=== PATIENT | male | born 1960 | race Caucasian/White ===

== ENCOUNTER 2018-03-01 06:22 | Inpatient (IN) | payer MEDICAID ==
[2018-03-01] MEDS ORDERED: LR 1,000 ML IV ONE (06:40)
[2018-03-01] MEDS ORDERED: LIDOCAINE 1% 2 ML INJ ID PRN (06:40)
[2018-03-01] MEDS ORDERED: ceFAZolin 2 GM/DEXTROSE 100 ML IV ONE (06:51)
[2018-03-01] MEDS ORDERED: ACETAMINOPHEN 500 MG TAB PO ONE (06:51)
[2018-03-01] MEDS ORDERED: LIDOCAINE 1% 2 ML INJ ONE (07:06)
--- NOTE | 2018-03-01 07:46 | PDHPUP ---
History & Physical Update H&P update statement: This history and physical update is based on an assessment of the patient which was completed after admission or registration (within 24 hours), but prior to the surgery/procedure. H&P update: H&P reviewed & patient examined, no change in patient's condition since H&P completed
[2018-03-01] MEDS ORDERED: MIDAZOLAM 2 MG/2 ML VIAL IVP ONE (07:54)
--- NOTE | 2018-03-01 07:54 | PDANEPAE ---
ANE History of Present Illness 57 yo for LUDMILA anuersym clipping ANE Past Medical History - Cardiovascular History Hx Hypertension: Yes Hx Arrhythmias: No Hx Chest Pain: No Hx Coronary Artery / Peripheral Vascular Disease: No Hx CHF / Valvular Disease: No Hx Palpitations: No Cardiovascular History Comment: undiagnosed htn - Pulmonary History Hx COPD: No Hx Asthma/Reactive Airway Disease: No Hx Recent Upper Respiratory Infection: No Hx Oxygen in Use at Home: No Hx Sleep Apnea: Yes Sleep Apnea Screening Result - Last Documented: Positive Pulmonary History Comment: POS REMI - CPAP - Neurologic History Hx Cerebrovascular Accident: No Hx Seizures: No Hx Dementia: No Neurologic History Comment: balance problems, TREMORS - Endocrine History Hx Diabetes: No - Renal History Hx Renal Disorders: Yes Renal History Comment: kidney stones - Liver History Hx Hepatic Disorders: No - Neurological & Psychiatric Hx Hx Neurological and Psychiatric Disorders: No - Cancer History Hx Cancer: No - Congenital Disorder History Hx Congenital Disorders: No - GI History Hx Gastrointestinal Disorders: Yes Gastrointestinal History Comment: ACID REFLUX OCCAS - Other Health History Other Health History: tinnitis - Chronic Pain History Chronic Pain: No - Surgical History Prior Surgeries: KNEE SCOPE. kidney stone removal X2-3. rotator cuff surgery 2015. dipti STANLEY Review of Systems Review of Systems: - Exercise capacity METS (RN): 4 METS ANE Patient History - Allergies Allergies/Adverse Reactions: tramadol [From [facility]] Allergy (Verified 02/08/18 10:36) ITCHING & AGITATION - Home Medications Home Medications: Propranolol HCl [Inderal Xl] 80 mg PO DAILY@13 12/21/17 [Last Taken 02/28/18] - NPO status NPO Status: no food or drink >8 hours NPO Since - Liquids (Date): 02/28/18 NPO Since - Liquids (Time): 22:00 NPO Since - Solids (Date): 02/28/18 NPO Since - Solids (Time): 21:00 - Anes Hx Anes Hx: post operative nausea and vomiting - Smoking Hx Smoking Status: Never smoked - Family Anes Hx Family Hx Anesthesia Complications: none ANE Labs/Vital Signs - Vital Signs Blood Pressure: 118/71 Heart Rate: 65 Respiratory Rate: 15 O2 Sat (%): 94 Height: 5 ft 9 in Weight: 133.81 kg ANE Physical Exam - Airway Neck exam: FROM Mallampati Score: Class 2 Mouth exam: normal dental/mouth exam - Pulmonary Pulmonary: no respiratory distress - Cardiovascular Cardiovascular: regular rate and rhythym - ASA Status ASA Status: III ANE Anesthesia Plan Anesthesia Plan: general endotracheal anesthesia Lines/Monitors: arterial line, central line Specialized Airway: video laryngoscope
[2018-03-01] MEDS ORDERED: THROMBIN (BOVINE) 20,000 UNIT VIAL TP ONE (07:59)
[2018-03-01] MEDS ORDERED: BACITRACIN ZINC 14.2 GM OINTTUBE TP ONE ×2 (07:59→12:05)
[2018-03-01] MEDS ORDERED: CHLORHEXIDINE GLUC HIBICLENS 118 ML BTL TP ONE (08:00)
[2018-03-01] MEDS ORDERED: MANNITOL 20% 100 GM/500 ML BAG IV ONE ×3 (08:00→08:54)
[2018-03-01] MEDS ORDERED: BUPIVACAINE 0.25% 30 ML SDV ONE (08:00)
[2018-03-01] MEDS ORDERED: niCARdipine/NACL/200 ML BAG IV ONE (08:00)
[2018-03-01] MEDS ORDERED: EPINEPHrine 1 MG/ML INJ ONE (08:01)
[2018-03-01] MEDS ORDERED: INDOCYANINE GREEN 25 MG VIAL ONE (08:01)
[2018-03-01] MEDS ORDERED: GENTAMICIN SULFATE 80 MG/2 ML VIAL ONE (08:01)
[2018-03-01] MEDS ORDERED: AVITENE POWDER 1 GM JAR TP ONE (08:03)
[2018-03-01] MEDS ORDERED: fentaNYL 250 MCG/5 ML INJ ONE (08:04)
[2018-03-01] MEDS ORDERED: REMIFENTANIL HCL 1 MG VIAL ONE ×2 (08:04→09:46)
[2018-03-01] MEDS ORDERED: PROPOFOL/EMULSION 500 MG/50 ML BOTTLE IV ONE ×2 (08:04→09:47)
[2018-03-01] MEDS ORDERED: SUGAMMADEX SODIUM 200 MG/2 ML VIAL IVP ONE (11:42)
[2018-03-01] MEDS ORDERED: LABETALOL HCL 5 MG/ML 20 ML MDV ONE (11:42)
[2018-03-01] MEDS ORDERED: ROCURONIUM 100 MG/10 ML VIAL ONE (11:42)
[2018-03-01] MEDS ORDERED: ONDANSETRON 4 MG/2 ML VIAL ONE (11:42)
[2018-03-01] MEDS ORDERED: DEXAMETHASONE 4 MG/ML VIAL ONE (11:42)
[2018-03-01] MEDS ORDERED: NALOXONE HCL 0.4 MG/ML INJ IVP PRN ×2 (11:55→15:05)
[2018-03-01] MEDS ORDERED: ONDANSETRON 4 MG/2 ML VIAL IVP PRN (11:55)
[2018-03-01] MEDS ORDERED: PROMETHAZINE HCL 25 MG/ML INJ IVP PRN ×2 (11:55→13:13)
[2018-03-01] MEDS ORDERED: PROPOFOL 200 MG/20 ML VIAL ONE (12:31)
[2018-03-01] MEDS ORDERED: fentaNYL 100 MCG/2 ML INJ ONE (12:40)
--- NOTE | 2018-03-01 12:42 | GOP ---
DATE OF OPERATION: 03/01/2018 SURGEON: Jimbo Panchal MD NEUROSURGEON: Jimbo Panchal MD. PINION AND WHEEL TRUER: NESTOR Tolentino. ANESTHESIA: General endotracheal. PREOPERATIVE DIAGNOSIS: Unruptured anterior communicating artery aneurysm. POSTOPERATIVE DIAGNOSIS: Unruptured anterior communicating artery aneurysm. PROCEDURE PERFORMED: 1. Right pterional craniotomy. 2. Microsurgical clipping of unruptured anterior communicating artery aneurysm (simple). 3. Use of the operative microscope. 4. Indocyanine Green angiography using the microscope. FINDINGS: Successful clip ligation of A-comm aneurysm. SPECIMENS: There were no specimens. ESTIMATED BLOOD LOSS: 50 cc. INDICATIONS: The patient is a 57-year-old man who had an incidentally found unruptured anterior comm unicating artery aneurysm. We confirmed this with an angiogram and the aneurysm was about 5 mm with a very wide and broad-based neck. We discussed the options of endovascular treatment versus surgical clipping and ultimately after a long discussion of the risks and benefits, he decided to proceed wit h surgical clipping. He presents electively today for this procedure. DESCRIPTION OF PROCEDURE: After informed consent was obtained from the patient, the patient was brou ght to the operating room and was placed in a supine position on the operating table. A formal time- out was performed, identifying the patient by name, medical record number, and date of . Preope rative antibiotics were given. The endotracheal tube was placed and general endotracheal anesthesia was smoothly induced. All appropriate lines were placed by Anesthesia. The patient's head was place d in the Shrestha pins and turned slightly toward the left side with the malar eminence at the highes t point. A curvilinear pterional craniotomy incision was marked and a small strip of hair was clippe d. 20 cc of 0.25% Marcaine with epinephrine was infiltrated in the skin for hemostasis. At this point, the head was prepped and draped in the normal sterile fashion. The skin incision was made using a 10 blade, and the subcutaneous tissues were dissected using monopolar electrocautery. T he superficial temporal artery was preserved. The temporalis muscle and its fascia were opened in li ne with the incision and a single myocutaneous flap was retracted anteriorly exposing the frontal zyg omatic process. At this point, 3 bur holes were created in standard pterional fashion and a cranioto me was used to turn a standard pterional craniotomy flap. Unfortunately, the dura was completely inc orporated into the bone and complete dural flap was removed with the bone flap. All bleeding was con trolled using bipolar electrocautery and Gelfoam. The sphenoid wing was then drilled down and flushe d with the skull base and again all bleeding was controlled using bipolar electrocautery. At this point, the operative microscope was brought on the field and the remainder of the procedure w as performed under a high-power magnification. First, we inspected the area. The more proximal sylv blaise fissure was split using microsurgical arachnoid dissection. The optical carotid cistern was then opened and the ipsilateral optic nerve was completely dissected free of its arachnoid adhesions towa rd the olfactory tract. The carotid artery was visualized and the contralateral optic nerve was also visualized. A small opening was made in the lamina terminalis to provide for further brain relaxati on, and the ipsilateral A-1 segment of the anterior cerebral artery was then identified. This was di ssected medially and the inferior portion of the interhemispheric fissure was also opened. This allo wed us to see the contralateral A-1 segment giving good proximal control. At this point, the aneurysm was elevated quite high in the interhemispheric fissure. Therefore, this required placement of a self-retaining retractor on the gyrus rectus. A small amount of the gyrus r ectus was resected giving exposure of the ipsilateral A-2 segment. The recurrent artery of Nevaeh a nd the frontal polar artery were carefully preserved. At this point, we were able to see the entire anterior communicating artery complex and careful microdissection contralaterally revealed the contra lateral A-2. The aneurysm was seen projecting superiorly and posteriorly toward the inner hemispheri c fissure. The posterior aspect of the aneurysm was dissected and the A-comm perforators were visual ized and very carefully preserved. At this point, we had identified the anatomy of the aneurysm well and a fenestrated [facility] an[facility] urysm clip was selected and this was placed across the neck of the aneurysm with care to preserve the contralateral and ipsilateral A-2 segments. This left a small shoulder of the aneurysm ipsilaterall y and a 2nd fenestrated clip was placed in a picket-fence fashion which took care of this other porti on of the aneurysm. The area was inspected and both A-1 and A-2 segments were widely patent. The an terior communicating artery was also patent. This was checked with a Doppler ultrasound and subseque ntly an Indocyanine Green angiogram was performed using the operative microscope, which confirmed goo d patency of all vessels with what appeared to be normal flow. At this point, the wound was copiously irrigated. A few pieces of Surgicel were placed around the an eurysm clips, and the aneurysm clips were padded away from the optic nerve using Gelfoam. The wound was copiously irrigated using sterile saline. At this point in terms of the dural repair, a large pi annie of DuraGen was placed in as an inlay graft and tucked underneath the edges of the bone. It was s utured to the edges of the bone on the inferior frontal area to elevate it and provide a good graft s urface. At this point, what remained of the dura was tacked closed over the top of this, and the bon e flap was plated back in place using Synthes titanium plates and screws. Some Gelfoam was placed in the sub temporal area and a 10-Moroccan GRISELDA drain was placed in the subgaleal space. The wound was copy holder iously irrigated using bacitracin irrigation. The temporalis muscle and its fascia were closed using interrupted 2-0 Vicryls and the galea was closed using interrupted 2-0 Vicryls and the skin was clos ed using a running 4-0 Monocryl. Sterile dressings were placed. The hair was washed. The patient w as awakened in the operating room, was extubated, and was transferred to the PACU in stable condition . There were no operative complications. I was scrubbed and present the entire procedure. All spon ge and needle counts were correct at the end of the case. FLUIDS AND URINE OUTPUT: Per the anesthesia record. DRAINS: A subgaleal GRISELDA. /[id number]/MODL
[2018-03-01] MEDS: fentaNYL 100 MCG/2 ML INJ IVP PRN ×2 (12:47→13:10)
[2018-03-01] MEDS ORDERED: HYDROmorphONE/DILAUDID 2 MG/ML INJ ONE (12:58)
[2018-03-01] MEDS ORDERED: BISACODYL 10 MG SUPP PR PRN (13:13)
[2018-03-01] MEDS ORDERED: LACTULOSE 20 GM/30 ML UDCUP PO PRN (13:13)
[2018-03-01] MEDS ORDERED: POLYETHYLENE GLYCOL 3350 17 GM PKT PO PRN (13:13)
[2018-03-01] MEDS ORDERED: HYDROCODONE/APAP 10/325 TAB PO PRN (13:13)
[2018-03-01] MEDS ORDERED: MAG HYDROX/AL HYDROX/SIMETH 30 ML UDCUP PO PRN (13:13)
[2018-03-01] MEDS ORDERED: MAGNESIUM HYDROXIDE 30 ML UDCUP PO PRN (13:13)
--- NOTE | 2018-03-01 13:37 | POSTOPPROG ---
Post Op Note Date of Operation: 03/01/18 Surgeon: Jimbo Panchal Vice President Of News: Fern Saravia PA-C Anesthesia: GET(General Endotracheal) Pre-op Diagnosis: Unruptured aneurysm Post-op Diagnosis: same Procedure: Right sided craniotomy for clipping of Acomm aneurysm Inf/Abcess present in the surg proc area at time of surgery?: No Depth: Organ Space EBL: 50-100 Drains: Robson Monreal (GRISELDA X1- subgaleal) SOAP Progress Note Assessment/Plan: Assessment: Plan: 03/01/18 13:28 S: Patient in PACU. Restless in bed but moving everything and stable. O: NAD, VSS CN II-XII gorssly intact PERRL, EOMI ORR X4 with full strength restless in bed pulling off clothes Incision c/d/i- telfa Left frontal pin site stapled and scalp hematoma present GRISELDA X1- subgaleal A: 57 yo male sp right frontal craniotomy for surgical clipping of Acomm aneurysm P: -Admit to ICU -SBP 90-140 -HOB elevated overnight -Neuro checks q1 -Head CT in am -Diagnostic angiogram tomorrow -PT.OT.SENIOR STAFF CONSULTANT -Advance diet as tolerated -Activity as tolerated -Call with any questions or concerns Objective: Vital Signs Temp Pulse Resp BP Pulse Ox 36.2 C 51 L 14 93/49 L 96 03/01/18 12:50 03/01/18 12:50 03/01/18 13:06 03/01/18 13:06 03/01/18 12:51 02/28/18 03/01/18 03/02/18 05:59 05:59 05:59 Intake Total 2700 Output Total 2190 Balance 510
[2018-03-01] MEDS ORDERED: NALOXONE HCL 0.4 MG/ML INJ ONE (15:04)
--- NOTE | 2018-03-01 15:43 | GCON ---
TIRE SORTER CONSULTATION REASON FOR ADMISSION: Status post right-sided craniotomy with clipping of ACom aneurysm. HISTORY OF PRESENT ILLNESS: The patient is a 57-year-old white male. He has a past medical history of essential tremors. Again, he is examined postoperatively. Upon presentation to the intensive car e unit out of the recovery room, he is found to be markedly bradycardic. When he is aroused, his hea rt rate comes back up. Blood pressures remain stable. He is minimally diaphoretic at this time. REVIEW OF SYSTEMS: Ten-point review of systems was attempted, but unable to perform secondary to sed ation post anesthesia. PAST MEDICAL HISTORY: Significant for essential tremors. ALLERGIES: Tramadol. SOCIAL HISTORY: No history of tobacco use. Infrequent alcohol use. 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 He is , with 2 children. He has lived in [place] all of his life. PHYSICAL EXAM: VITAL SIGNS: Blood pressure 120/55. Pulse is 42, but dropped down to low 30s. Resp iratory rate is 14. Temperature is 35.8. Oxygen saturation 96% on 2 L. GENERAL: He is a mildly ove rweight 57-year-old white male who is somnolent but weakly arousable. HEENT: Eyes: PERRLA, EOMI. T hroat shows no erythema or tonsillar hypertrophy. NECK: Supple. There is no cervical adenopathy. HEART: Regular rate and rhythm, but bradycardic. LUNGS: Diminished breath sounds but no wheeze. A BDOMEN: Soft, nontender. Bowel sounds are present in all 4 quadrants. EXTREMITIES: No clubbing, c yanosis, or edema. LABORATORY DATA: Laboratories are currently pending. IMPRESSION: 1. Status post right-sided craniotomy for clipping of an anterior communicating aneurysm. 2. Bradycardia, etiology of which is unclear, though post anesthetic would appear to be most likely. 3. History of essential tremor. RECOMMENDATIONS: 1. Agree with EKG. 2. Would consider consultation with Cardiology if heart rate does not improve in approximately an ho ur. 3. DVT and PE prophylaxis. 4. Stress ulcer prophylaxis. /[id number]/MODL
--- NOTE | 2018-03-01 16:05 | PDMN ---
Medical Necessity Medical necessity: [facility] IP only surgery cpt 75012 R craniotomy for clipping of aneurysm
[2018-03-01] MEDS: POLYETHYLENE GLYCOL 3350 17 GM PKT PO SCH ×2 (16:16→20:47)
[2018-03-01] MEDS: NS W/ 20 KCl/L 1,000 ML IV SCH (17:20)
[2018-03-01] MEDS: ceFAZolin 2 GM in D5W 100 ML IV SCH (17:28)
[2018-03-01] MEDS: ONDANSETRON 4 MG/2 ML VIAL IVP PRN (17:45)
[2018-03-01] MEDS ORDERED: LORazepam 2 MG/ML INJ IVP ONE (19:00)
[2018-03-01] MEDS: SENNOSIDES/DOCUSATE SODIUM TAB PO SCH (20:47)
[2018-03-02] MEDS: ceFAZolin 2 GM in D5W 100 ML IV SCH (01:41)
[2018-03-02] MEDS ORDERED: LORazepam 2 MG/ML INJ IVP ONE (01:45)
--- NOTE | 2018-03-02 08:46 | NEUSURGPN ---
Assessment/Plan: Assessment: Plan: 03/01/18 13:28 S: He has a mild headache and some jaw pain. O: NAD, VSS CN II-XII gorssly intact Occasional word finding difficulties but nothing consistent PERRL, EOMI ORR X4 with full strength Incision c/d/i- telfa Left frontal pin site stapled and scalp hematoma present GRISELDA X1- subgaleal A: 57 yo male sp right frontal craniotomy for surgical clipping of Acomm aneurysm P: -Admit to ICU -SBP 90-140 -GRISELDA Drain - leave in to full suction -Neuro checks q2 -Head CT later this morning, was unable to get last night due to agitation -Diagnostic angiogram this afternoon as well -Will monitor speech for now and see what angiogram shows and CT -PT.OT.MEDICAL OFFICE RECEPTIONIST ASSISTANT -Advance diet as tolerated -Activity as tolerated -Call with any questions or concerns -Seen with Dr. Panchal as well Catheter Insertion Date: 03/01/18 - Physician Discussed Patient with Dr.: Panchal Patient Seen by Dr.: Panchal Neurosurgery Physical Exam - Vitals, I&O, Labs I and O 03/01/18 03/02/18 03/03/18 05:59 05:59 05:59 Intake Total 2700 1346 Output Total 4905 Balance -2205 1346 Weight 133.81 kg Intake: IV Intake (ml) 2700 IV Infused (ml) 1346 NS W/ 20 KCl/L 1,000 ml @ 1346 100 mls/hr IV CONT AMY Rx#:[id number] Output: Urine (ml) 4450 Catheter 4450 Estimated Blood Loss (ml) 150 GRISELDA Drain Output (ml) 305 Right Head Robson Monreal 305 Other: Number of Stools Catheter 0 Vital Signs Temp Pulse Resp BP Pulse Ox 36.9 C 64 17 132/64 H 91 L 03/02/18 05:00 03/02/18 06:00 03/02/18 06:00 03/02/18 06:00 03/02/18 06:00 ICD10 Worksheet Patient Problems: Problems Problem Status Onset Cerebral aneurysm Acute - ICD10 Problem Qualifiers (1) Cerebral aneurysm
--- NOTE | 2018-03-02 09:32 | ASMTCASEMG ---
Living Arrangements What is your living Answers: With Spouse arrangement? Who do you live with? Type Of Residence What kind of residence do Answers: House you live in? Discharge Plan Comments Coordination Status Comments Notes: Patient is a 57yo male who was admitted for surgery due to a 5mm wide-necked Acomm aneurysm. Patient has opted for surgical clipping over stent assisted coil embolization. OT/PT/SPL have been ordered. D/C plan TBD. CM will follow. Date Signed: 03/02/2018 09:31 AM Electronically Signed By:Katelin Bennett LCSW
--- NOTE | 2018-03-02 09:37 | PDINTPN ---
Multilith Operator Progress Note Assessment/Plan: Assessment/plan: * Status post right-sided craniotomy with clipping of acomm aneurysm -repeat CT scan of the head this morning * Mental status-slow to improve * Bradycardia-markedly better * PT/OT * History of essential tremors * Nutrition * Stress ulcer prophylaxis Subjective: Complains of nausea. Still somewhat agitated and little confused. Objective: Vital Signs Temp Pulse Resp BP Pulse Ox 36.9 C 64 17 132/64 H 91 L 03/02/18 05:00 03/02/18 06:00 03/02/18 06:00 03/02/18 06:00 03/02/18 06:00 03/01/18 03/02/18 03/03/18 05:59 05:59 05:59 Intake Total 2700 1346 Output Total 4905 Balance -2205 1346 - Time Spent With Patient Time Spent With Patient: 35 min of time spent with patient, over 1/2 involved coordination of care or counseling Physical Exam - Physical Exam General Appearance: alert, other (Today somewhat agitated) EENT: PERRL/EOMI Neck: non-tender, full range of motion, supple, normal inspection Respiratory: chest non-tender, lungs clear, normal breath sounds Cardiac/Chest: normal peripheral pulses, regular rate, rhythm Peripheral Pulses: 2+: carotid (R), carotid (L), femoral (R), femoral (L), dorsalis-pedis (R), dorsalis-pedis (L) Abdomen: normal bowel sounds, non-tender, soft Male Genitalia: deferred Rectal: deferred Skin: normal color, warm/dry Extremities: normal range of motion, non-tender, normal inspection, normal capillary refill Neuro/Psych: alert ICD10 Worksheet Patient Problems: Problems Problem Status Onset Cerebral aneurysm Acute
[2018-03-02] MEDS: SENNOSIDES/DOCUSATE SODIUM TAB PO SCH (10:21)
[2018-03-02] MEDS: POLYETHYLENE GLYCOL 3350 17 GM PKT PO SCH ×2 (10:21→16:33)
[2018-03-02] MEDS: ONDANSETRON 4 MG/2 ML VIAL IVP PRN (12:02)
[2018-03-02] MEDS: PROPRANOLOL SR 80 MG CAP PO SCH (14:30)
--- NOTE | 2018-03-02 16:31 | CPEKG ---
Test Reason : OPEN Blood Pressure : / mmHG Vent. Rate : 040 BPM Atrial Rate : 041 BPM P-R Int : 157 ms QRS Dur : 104 ms QT Int : 546 ms P-R-T Axes : 030 -12 -19 degrees QTc Int : 446 ms Sinus bradycardia Borderline T abnormalities, diffuse leads Confirmed by Christopher Keller ([id number]) on 03/02/2018 4:31:17 PM Referred By: Confirmed By:Christopher Keller
[2018-03-02] MEDS: hydrALAZINE 20 MG/ML VIAL IVP PRN (17:58)
[2018-03-02] MEDS: NS W/ 20 KCl/L 1,000 ML IV SCH (19:35)
[2018-03-02] MEDS: ACETAMINOPHEN 325 MG TAB PO PRN (22:00)
[2018-03-03] MEDS: SENNOSIDES/DOCUSATE SODIUM TAB PO SCH ×4 (00:16→20:37)
[2018-03-03] MEDS: POLYETHYLENE GLYCOL 3350 17 GM PKT PO SCH ×4 (00:16→20:37)
[2018-03-03] MEDS: ONDANSETRON 4 MG/2 ML VIAL IVP PRN ×2 (06:13→20:29)
[2018-03-03] MEDS: hydrALAZINE 20 MG/ML VIAL IVP PRN (06:18)
[2018-03-03] MEDS: niCARdipine/NACL 200 ML IV PRN ×3 (07:38→12:21)
--- NOTE | 2018-03-03 08:40 | NEUSURGPN ---
Date of Surgery: 03/01/18 Post Op Day: 2 Assessment/Plan: A: 57 yo male sp right frontal craniotomy for surgical clipping of Acomm aneurysm P: -neuro stable -SBP 90-140 -GRISELDA Drain - removed this morning, staple placed. Patient tolerated well -Neuro checks q2 -CT head 03/02: small amount of SAH bilaterally, trace right subdural fluid, tiny focus of intraparenchymal hemorrhage in frontal lobe -PT.OT.SOLUTION ANALYST -Advance diet as tolerated -Activity as tolerated - keep HOB elevated - likely to floor this afternoon -Call with any questions or concerns Discussed with Dr. Panchal Subjective: Patient reports mild headache and some n/v. Objective: Awake. Alert. PERRL. EOMI Right periorbital edema Facial expression symmetrical Muscle strength full at 5/5 Incision with dressing c/d/i Catheter Insertion Date: 03/01/18 - Physician Discussed Patient with : [facility] Physical Exam - Vitals, I&O, Labs I and O 03/02/18 03/03/18 03/04/18 05:59 05:59 05:59 Intake Total 2700 2922 Output Total 4905 1890 2340 Balance -2205 1032 -2340 Weight 133.81 kg Intake: Oral (ml) 250 IV Intake (ml) 2700 IV Infused (ml) 2672 NS W/ 20 KCl/L 1,000 ml @ 2672 100 mls/hr IV CONT AMY Rx#:[id number] Output: Urine (ml) 4450 1675 1850 Catheter 4450 1675 1850 Estimated Blood Loss (ml) 150 Emesis (ml) 115 400 GRISELDA Drain Output (ml) 305 100 90 Right Head Robson Monreal 305 100 90 Other: Number of Voids Catheter 1 Number of Stools Catheter 0 0 Number of Emesis 1 Occurrences Vital Signs Temp Pulse Resp BP Pulse Ox 37 C 84 18 159/73 H 96 03/03/18 04:00 03/03/18 07:00 03/03/18 07:00 03/03/18 07:51 03/03/18 07:00 ICD10 Worksheet Patient Problems: Problems Problem Status Onset Cerebral aneurysm Acute
--- NOTE | 2018-03-03 09:36 | PDINTPN ---
Boiler Fitter Progress Note Assessment/Plan: Assessment/plan: * Status post right-sided craniotomy with clipping of acomm aneurysm -repeat CT scan of the head this morning * Mental status-markedly better. Patient awake and alert. * Bradycardia-markedly better * PT/OT * History of essential tremors * Nutrition * Stress ulcer prophylaxis * Disposition-likely transfer to floor later on today Subjective: Resting comfortably in bed. Passing gas. Awake and alert and orient x3. Pain reasonably well controlled. Objective: Vital Signs Temp Pulse Resp BP Pulse Ox 37.0 C 87 15 157/68 H 95 03/03/18 08:00 03/03/18 09:00 03/03/18 09:00 03/03/18 09:00 03/03/18 09:00 03/02/18 03/03/18 03/04/18 05:59 05:59 05:59 Intake Total 2700 2922 Output Total 4905 1890 2340 Balance -2205 1032 -2340 - Time Spent With Patient Time Spent With Patient: 35 min of time spent with patient, over 1/2 involved with coordination of care or counseling. Case discussed with nursing Physical Exam - Physical Exam General Appearance: alert, no apparent distress, obese EENT: PERRL/EOMI Neck: non-tender Respiratory: chest non-tender, lungs clear, normal breath sounds Cardiac/Chest: normal peripheral pulses, regular rate, rhythm Peripheral Pulses: 2+: carotid (R), carotid (L), femoral (R), femoral (L), dorsalis-pedis (R), dorsalis-pedis (L) Abdomen: normal bowel sounds, non-tender, soft Male Genitalia: deferred Rectal: deferred Skin: normal color, warm/dry Neuro/Psych: alert, oriented x 3 ICD10 Worksheet Patient Problems: Problems Problem Status Onset Cerebral aneurysm Acute
[2018-03-03] MEDS: PROPRANOLOL SR 80 MG CAP PO SCH (12:21)
--- NOTE | 2018-03-03 12:50 | ASMTCMCOM ---
CM Note CM Note Notes: OT/PT/MERCHANDISING EXECUTION ASSOCIATE are all recommending inpatient rehab services for patient at d/c. Dr. Alvares has placed an order for inpatient rehab eval. Will await those results to continue planning. CM will follow. Date Signed: 03/03/2018 12:49 PM Electronically Signed By:Katelin Bennett LCSW
[2018-03-03] MEDS: ACETAMINOPHEN 325 MG TAB PO PRN (20:36)
[2018-03-04 07:22] VITALS: BP 122/68
--- NOTE | 2018-03-04 08:27 | NEUSURGPN ---
Date of Surgery: 03/01/18 Post Op Day: 3 Assessment/Plan: Assessment: 57 yo male sp right frontal craniotomy for surgical clipping of Acomm aneurysm Plan: -neuro stable -SBP 90-140 -Neuro checks q4 -CT head 03/02: small amount of SAH bilaterally, trace right subdural fluid, tiny focus of intraparenchymal hemorrhage in frontal lobe -PT.OT.TILTROTOR CREW CHIEF-currently recommending in patient rehab. Dr Panchal would prefer that patient discharge home with home health if possible. Ok to dc today from our standpoint -Advance diet as tolerated -Remove telfa dressing, ok to shower and wash hair daily with baby shampoo -Activity as tolerated - keep HOB elevated -ok to transfer to floor -Call with any questions or concerns Discussed with Dr. Panchal Subjective: Feeling well, no complaints Objective: AxO x3 PERRLA EOMI CN 2-12 grossly intact MAEx4 5/5 BUE, BLE Incision/dressing CDI Neuro Check Frequency: per routine Urinary Catheter in Place: No Catheter Insertion Date: 03/01/18 - Physician Discussed Patient with : [facility] Physical Exam - Vitals, I&O, Labs I and O 03/03/18 03/04/18 03/05/18 05:59 05:59 05:59 Intake Total 2922 1080 450 Output Total 1890 4140 200 Balance 1032 -3060 250 Intake: Oral (ml) 250 400 450 IV Infused (ml) 2672 680 NS W/ 20 KCl/L 1,000 ml @ 2672 100 mls/hr IV CONT AMY Rx#:[id number] niCARdipine/NACL 200 ml @ 680 Titrate IV PRN PRN Rx#: [id number] Output: Urine (ml) 1675 3450 200 Catheter 1675 3450 Toilet 200 Emesis (ml) 115 600 GRISELDA Drain Output (ml) 100 90 Right Head Robson Monreal 100 90 Other: Intake Quantity Yes Sufficient Number of Voids Catheter 1 Toilet 1 1 Number of Stools Catheter 0 Toilet 0 Number of Emesis 1 5 Occurrences Vital Signs Temp Pulse Resp BP Pulse Ox 36.7 C 58 L 19 122/68 H 96 03/04/18 07:21 03/04/18 07:21 03/04/18 07:21 03/04/18 07:21 03/04/18 07:21 ICD10 Worksheet Patient Problems: Problems Problem Status Onset Cerebral aneurysm Acute
[2018-03-04] MEDS: POLYETHYLENE GLYCOL 3350 17 GM PKT PO SCH (08:41)
--- NOTE | 2018-03-04 10:46 | ASMTLACE ---
LACE Length of stay for Answers: 3 days current admission Acuity / Level of Answers: Yes Care: Did the patient have an inpatient admission? Comorbidities - select Answers: Other Notes: HTN; Hx of kidney all that apply stones, aortic aneurysm # of Emergency department Answers: 0 visits in the last 6 months Score: 7 Date Signed: 03/04/2018 10:45 AM Electronically Signed By:Ofe Foss RN
--- NOTE | 2018-03-04 10:52 | PDIAF ---
- Diagnosis Diagnosis: S/P right crani for acomm aneurysm clipping Code Status: Full Code - Medication Management Discharge Medications: Medications to Continue on Transfer Propranolol HCl [Inderal Xl] 80 mg PO DAILY@13 12/21/17 [Last Taken 02/28/18] Acetaminophen [Tylenol 325mg (*)] 650 mg PO Q4HRS PRN tab 03/04/18 [Last Taken Unknown] HYDROcodone/APAP 10/325 [Gray 10/325 (*)] 1 - 2 tab PO Q6HRS PRN #60 tab [Last Taken Unknown] Sennosides/Docusate Sodium [Senokot-S] 1 - 2 tab PO BID tab 03/04/18 [Last Taken Unknown] Discharge Medications: Refer to the Discharge Home Medication list for PRN reason. PICC Care - Routine: N/A - Orders Services needed: Home Care, Registered Nurse, Physical Therapy, Occupational Therapy Home Care Face to Face: I certify that this patient was under my care and that I had the required [id number] encounter meeting the encounter requirements on the discharge day. My findings support the fact that the patient is homebound as defined in Home Care Face to Face Continued: CMS Chapter 7 Medicare Benefits Manual 30.1.1 , The condition of the patient is such that there exists a normal inability to leave home and consequently, leaving home would require a considerable and taxing effort. Diet Recommendation: no restrictions on diet Diet Texture: Regular Texture Diet Wound Care Instructions: Ok to shower and wash hair daily with baby shampoo Additional Instructions: Ok to shower daily and wash hair with baby shampoo Avoid lifting greater than 10 pounds Follow up with Dr Panchal in 2 weeks Call office with any questions/concerns [phone] - Follow Up Care Current Providers and Referrals: JACIEL GILBERT [Other] Jimbo Panchal MD [Medical Doctor] - follow up in 2 weeks
--- NOTE | 2018-03-04 11:13 | ASMTDCNOTE ---
Case Management Discharge Discharge Order Complete? Answers: Yes Patient to Obtain Answers: via Family Medications Transportation Arranged Answers: Family/Friends Faxed Final Orders Answers: Yes [facility] Transfer Answers: Yes [facility] Report Printed & Faxed to Receiving Agency Discharge Comments Notes: 03/04/2018 Case Management Note Met w/pt to discuss PT and OT recommendations for home health. [facility] F[facility]ed final orders. Case Management d[facility] p[facility] PT Date Signed: 03/04/2018 11:12 AM Electronically Signed By:Ofe Foss RN
--- NOTE | 2018-03-04 11:13 | ASDISCHSUM ---
Discharge Information Plan Status:Home with Home Health Medically Cleared to Leave:03/04/2018 Discharge Date:03/04/2018 CM D/C Disposition:Home Health Service ADT D/C Disposition:[id number] Projected Discharge Date:03/04/2018 11:00 AM Transportation at D/C:Family Discharge Delay Reason: Follow-Up Date:03/04/2018 11:00 AM Discharge Slot: Final Diagnosis: Placement Information Referral Type:*Home Health Care Services Referral ID:[id number] Provider Name:[facility] ([facility]) Address 1:[address] Address 2: City:[place] Selection Factors: State:[place] Patient Contact Information Contact Name:JONO Relationship: Address:[address] Work Phone: [facility]:[place] Alternate Phone: State/Zip Code:[place] [address] Email: Financial Information Financial Class:Medicaid Primary Plan Desc:MEDICAID [facility] [place] Primary Plan Number:[id number] Secondary Plan Desc: Secondary Plan Number: Assessment Information LACE LACE Length of stay for Answers: 3 days current admission Acuity / Level of Answers: Yes Care: Did the patient have an inpatient admission? Comorbidities - select Answers: Other Notes: HTN; Hx of kidney all that apply stones, aortic aneurysm # of Emergency department Answers: 0 visits in the last 6 months Score: 7 Date Signed: 03/04/2018 10:45 AM Electronically Signed By:Ofe Foss RN [facility] Initial CM Assessment Living Arrangements What is your living Answers: With Spouse arrangement? Who do you live with? Type Of Residence What kind of residence do Answers: House you live in? Discharge Plan Comments Coordination Status Comments Notes: Patient is a 57yo male who was admitted for surgery due to a 5mm wide-necked Acomm aneurysm. Patient has opted for surgical clipping over stent assisted coil embolization. OT/PT/SPL have been ordered. D/C plan TBD. CM will follow. Date Signed: 03/02/2018 09:31 AM Electronically Signed By:Katelin Bennett LCSW [facility] CM Progress Note CM Note CM Note Notes: OT/PT/PNEUMATIC SYSTEM CONVEYOR OPERATOR are all recommending inpatient rehab services for patient at d/c. Dr. Alvares has placed an order for inpatient rehab eval. Will await those results to continue planning. CM will follow. Date Signed: 03/03/2018 12:49 PM Electronically Signed By:Katelin Bennett LCSW Case Management Discharge Plan Note Case Management Discharge Discharge Order Complete? Answers: Yes Patient to Obtain Answers: via Family Medications Transportation Arranged Answers: Family/Friends Faxed Final Orders Answers: Yes [facility] Transfer Answers: Yes [facility] Report Printed & Faxed to Receiving Agency Discharge Comments Notes: 03/04/2018 Case Management Note Met w/pt to discuss PT and OT recommendations for home health. Pt [facility] agreement[facility] Faxed final orders. Case Management d/c poc: [facility] RN PT Date Signed: 03/04/2018 11:12 AM Electronically Signed By:Ofe Foss RN Intervention Information
--- NOTE | 2018-03-07 09:04 | POSTANESTH ---
Post Anesthetic Evaluation Cardiovascular Status: Normal, Stable Respiratory Status: Normal, Stable Level of Consciousness/Mental Status: Can Participate in Eval Pain Control: Adequate, Prn Tx Ordered Nausea/Vomiting Control: Adequate, Prn Tx Ordered Complications Possibly Related to Anesthesia: None Noted
== END 2018-03-04 12:30 | disposition home health service (06) | DRG 21 ==
LOC: F3N 06:22 → F2N 13:17
PROVIDERS: ADMIT Neurological Surgery; ATTEND Neurological Surgery
PROC: 03LG0CZ Occlusion of Intracranial Artery with Extraluminal Device, Open Approach (ICD-10-PCS; principal; 2018-03-01 08:15)
DX: I67.1 Cerebral aneurysm, nonruptured (principal); G25.0 Essential tremor; I10 Essential (primary) hypertension; G47.33 Obstructive sleep apnea (adult) (pediatric); R00.1 Bradycardia, unspecified
CPT/HCPCS: 92507-GN; 92523-GN; 97116-GP; 97161-GP; 97166-GO; 97530-GP; 97535-GO; C1713; J0171; J0360; J0690; J1100; J1170; J1580; J2060; J2250; J2270; J2310; J2405; J2704; J3010

== ENCOUNTER 2018-06-16 07:19 | Day surgery (SDC) | payer MEDICAID ==
[2018-06-16] MEDS ORDERED: LR 1,000 ML IV ONE (07:30)
--- NOTE | 2018-06-16 08:31 | PDGENHP ---
History & Physical Chief Complaint: epi pain, nausea History of Present Illness: few months intemittnat pain LUQ and nausea. wt loss now stable Pertinent Past, Social, Family History: phx brain anursym,. fhx cacner - panc in Maternal uncle no cc or polyps. no tobacco. occ alcohol Relevant Physical Exam: A+ox3. CTA. S1S2, RRR. +bs, soft Cardiorespiratory Assessment: class 3
--- NOTE | 2018-06-16 08:52 | PDANEPAE ---
ANE History of Present Illness abdominal pain here for EGD ANE Past Medical History - Cardiovascular History Hx Hypertension: Yes Hx Arrhythmias: No Hx Chest Pain: No Hx Coronary Artery / Peripheral Vascular Disease: No Hx CHF / Valvular Disease: No Hx Palpitations: No Cardiovascular History Comment: undiagnosed htn - Pulmonary History Hx COPD: No Hx Asthma/Reactive Airway Disease: No Hx Recent Upper Respiratory Infection: No Hx Oxygen in Use at Home: No Hx Sleep Apnea: Yes Sleep Apnea Screening Result - Last Documented: Positive Pulmonary History Comment: REMI does not use anything - Neurologic History Hx Cerebrovascular Accident: No Hx Seizures: No Hx Dementia: No Neurologic History Comment: balance problems, TREMORS - Endocrine History Hx Diabetes: No Obesity: yes, moderate - Renal History Hx Renal Disorders: No Renal History Comment: kidney stones - Liver History Hx Hepatic Disorders: No - Neurological & Psychiatric Hx Hx Neurological and Psychiatric Disorders: Yes Neurological / Psychiatric History Comment: essential tremor - Cancer History Hx Cancer: No - Congenital Disorder History Hx Congenital Disorders: No - GI History Hx Gastrointestinal Disorders: Yes Gastrointestinal History Comment: ACID REFLUX OCCAS. weight loss,nausea - Other Health History Other Health History: tinnitis - Chronic Pain History Chronic Pain: No - Surgical History Prior Surgeries: KNEE SCOPE. kidney stone removal X2-3. rotator cuff surgery 2015. appy. brain sx 02/23 ANE Review of Systems Review of Systems: - Exercise capacity METS (RN): 4 METS ANE Patient History - Allergies Allergies/Adverse Reactions: tramadol [From Ultram] Allergy (Verified 06/12/18 14:38) ITCHING & AGITATION - Home Medications Home Medications: Propranolol HCl [Inderal Xl] 12/21/17 [Last Taken 06/15/18] Acetaminophen [Tylenol 325mg (*)] 06/12/18 [Last Taken 06/15/18] Sennosides/Docusate Sodium [Senokot-S] 06/12/18 [Last Taken 3 Months Ago ~03/16] - NPO status NPO Status: no food or drink >8 hours NPO Since - Liquids (Date): 06/15/18 NPO Since - Liquids (Time): 22:00 NPO Since - Solids (Date): 06/15/18 NPO Since - Solids (Time): 19:30 - Anes Hx Anes Hx: slow to awaken from anesthesia - Smoking Hx Smoking Status: Never smoked - Alcohol Use Alcohol Use: None - Family Anes Hx Family Anes Hx: none Family Hx Anesthesia Complications: none ANE Labs/Vital Signs - Vital Signs Blood Pressure: 115/77 Heart Rate: 60 Respiratory Rate: 16 O2 Sat (%): 95 Height: 175.26 cm Weight: 124.738 kg ANE Physical Exam - Airway Neck exam: FROM Mallampati Score: Class 2 Mouth exam: normal dental/mouth exam - Pulmonary Pulmonary: no respiratory distress, clear to auscultation - Cardiovascular Cardiovascular: regular rate and rhythym, no murmur, rub, or gallop - ASA Status ASA Status: III ANE Anesthesia Plan Anesthesia Plan: GA with mask Total IV Anesthesia: Yes
[2018-06-16] MEDS ORDERED: PROPOFOL/EMULSION 500 MG/50 ML BOTTLE IV ONE (08:55)
[2018-06-16 09:20] LABS: PLATELET COUNT 187 10^3/uL (150-400)
[2018-06-16] MEDS ORDERED: NALOXONE HCL 0.4 MG/ML INJ IVP PRN (09:23)
--- NOTE | 2018-06-16 09:25 | POSTANESTH ---
Post Anesthetic Evaluation Cardiovascular Status: Normal, Stable, Similar to Pre-Op Cond Respiratory Status: Normal, Stable, Similar to Pre-op Cond. Level of Consciousness/Mental Status: Can Participate in Eval, Mildly Sleepy, Arousable Pain Control: Adequate, Prn Tx Ordered Nausea/Vomiting Control: Adequate, Prn Tx Ordered Complications Possibly Related to Anesthesia: None Noted
--- NOTE | 2018-06-16 09:40 | GIREPORT ---
[facility] Surgical Services - Endoscopy Department Patient Name: Deonte Matta Procedure Date: 06/16/2018 8:23 AM Patient Type: Outpatient Attending MD/ ER Physician: Johny Escobedo MD Procedure: Upper GI endoscopy Indications: Abdominal pain in the left upper quadrant, Nausea Providers: Johny Escobedo MD Referring MD: Lorrie Ashby MD Medicines: Propofol per Anesthesia = IV general with spontaneous respirations Complications: No immediate complications. Estimated blood loss: Minimal. Description of Procedure: After obtaining informed consent, the endoscope was passed under direct vision. Throughout the procedure, the patient's blood pressure, pulse, and oxygen saturations were monitored continuously. The Endoscope was intro duced through the mouth, and advanced to the third part of duodenum. The uppe r GI endoscopy was accomplished without difficulty. The patient tolerated th e procedure well. Findings: LA Grade B (one or more mucosal breaks greater than 5 mm, not extending between the tops of two mucosal folds) esophagitis with no bleeding was found at the gastroesophageal junction. Biopsies were taken with a cold forceps for histology. Estimated blood loss was minimal. A small hiatal hernia was present. A few medium semi-sessile polyps were found in the gastric body. Biopsi es were taken with a cold forceps for histology. Estimated blood loss was minimal. Minimal inflammation characterized by erythema, friability and granular ity was found in the gastric antrum. Biopsies were taken with a cold forcep s for histology. Estimated blood loss was minimal. The examined duodenum was normal. The exam was otherwise without abnormality. Estimated Blood Loss: Estimated blood loss was minimal. Post Op Diagnosis: - LA Grade B reflux esophagitis. Biopsied. - Small hiatal hernia. - A few gastric polyps. Biopsied. - Gastritis. Biopsied. - Normal examined duodenum. - The examination was otherwise normal. Recommendation: - Await pathology results. - My office will call with the pathology result with 5-7 days. If you h ave not heard from my office by 12-14, do not assume the pathology is sukhjinder l, please call [phone] to get the pathology results. - Follow an antireflux regimen. - Use Prilosec (omeprazole) 40 mg PO daily for 3 months. Take 30-60 min utes before breakfast. - If no evidence of Whitten's, the correct amount of acid reducing mediations is the lest amount that controls his symptoms. can change be tween PPI and H2RA as needed. - Check lipase today. - Check electrolyte panel today. - Check hemogram with white blood cell count and platelets today. - Discharge patient to home (ambulatory). - Return to GI clinic in 4 weeks. - Try to get his old colon and EGD report. - If weight loss continues consider imaging his abdomen with CT scan wi th oral and IV contrast. - Return to primary care physician as previously scheduled. - Thank you for allowing me to help in your patient's care. Do not hesi fletcher to call with any questions. Attending Participation: I personally performed the entire procedure. Fanny العلي M.D Johny Escobedo MD 06/16/2018 9:40:14 AM This report has been signed electronicallyMatthew MD Fanny Number of Addenda: 0 Note Initiated On: 06/16/2018 8:23 AM [email or web address]
[2018-06-16 11:00] VITALS: BP 133/84
== END 2018-06-16 11:19 | disposition home or self-care (01) ==
LOC: FSGY 07:19
PROVIDERS: ATTEND Internal Medicine Gastroenterology
PROC: 0DB78ZX Excision of Stomach, Pylorus, Via Natural or Artificial Opening Endoscopic, Diagnostic (ICD-10-PCS; 2018-06-16)
PROC: 0DB58ZX Excision of Esophagus, Via Natural or Artificial Opening Endoscopic, Diagnostic (ICD-10-PCS; principal; 2018-06-16 09:00)
DX: K21.0 Gastro-esophageal reflux disease with esophagitis (principal); K29.50 Unspecified chronic gastritis without bleeding; K44.9 Diaphragmatic hernia without obstruction or gangrene; K31.7 Polyp of stomach and duodenum
CPT/HCPCS: J2704